=== PATIENT | male | born 1970 | race Caucasian/White ===

== ENCOUNTER → 2016-09-30 | Outpatient (REF) | payer OTHER | LOC: M SFHCLERA 20:03 | PROVIDERS: ATTEND Nurse Practitioner Family | DX: L02.92 Furuncle, unspecified (principal) ==

== ENCOUNTER → 2019-10-07 | Outpatient (CLI) | payer OTHER ==
[~2019-10-07] MED LIST: BUPR150T3 PO; FLON1SPR; FLUO40CA PO; LOSA100T50 PO; MULTCAP PO; OYST1TAB PO; PHEN-239 PO; VITAD1000T PO; VITATAB73 PO
== END ==
LOC: M LABSMTC 10:03
PROVIDERS: ATTEND Anesthesiology
DX: Z01.818 Encounter for other preprocedural examination (principal); Z11.59 Encounter for screening for other viral diseases

== ENCOUNTER 2019-10-10 07:53 | Day surgery (SDC) | payer OTHER ==
[~2019-10-10] VITALS: Ht 193 cm; Wt 161.5 kg
[~2019-10-10 07:53] MED LIST changes: +LIDOCAINE 2% 100MG/5ML SDV (FOR ANES.) As Ordered ONE; +NS 1,000 ML IV ONE; +propofoL 200 MG/20 ML VIAL As Ordered ONE
--- NOTE | 2019-10-10 09:12 | ROOR ---
Patient Name: Nicholas Parsons Procedure Date: 10/10/2019 8:47 AM Date of : 1970 Age: 49 Room: [facility] Gender: Male Note Status: Finalized Procedure: Total Colonoscopy to Cecum + ileoscopy Indications: High risk colon cancer surveillance: Personal history of colonic polyps, Last colonoscopy 10 years ago Providers: Jose Luis Plaza MD Referring MD: Emilia Singh NP Requesting Provider: Medicines: Monitored Anesthesia Care Complications: No immediate complications. Procedure: Pre-Anesthesia Assessment: - The heart rate, respiratory rate, oxygen saturations, blood pressure, adequacy of pulmonary ventilation, and response to care were monitored throughout the procedure. The Colonoscope was introduced through the anus and advanced to the terminal ileum, with identification of the appendiceal orifice and IC valve. The colonoscopy was performed without difficulty. The patient tolerated the procedure well. The quality of the bowel preparation was good. Findings: The perianal and digital rectal examinations were normal. Non-bleeding internal hemorrhoids were found during retroflexion. The hemorrhoids were small and Grade I (internal hemorrhoids that do not prolapse). No other significant abnormalities were identified in a careful examination of the remainder of the colon. The terminal ileum appeared normal. The exam was otherwise without abnormality on direct and retroflexion views. Impression: - Non-bleeding internal hemorrhoids. - The examined portion of the ileum was normal. - The examination was otherwise normal on direct and retroflexion views. - No specimens collected. - The exam was otherwise normal to the cecum. Recommendation: - Patient has a contact number available for emergencies. The signs and symptoms of potential delayed complications were discussed with the patient. Return to normal activities tomorrow. Written discharge instructions were provided to the patient. - High fiber diet. - Discharge patient to home. - Continue present medications. - Repeat colonoscopy in 7 years for screening purposes. - Return to referring physician. - The findings and recommendations were discussed with the patient's family. Jose Luis Plaza MD Jose Luis Plaza MD 10/10/2019 9:11:30 AM Electronically signed by Jose Luis Plaza MD Number of Addenda: 0 Note Initiated On: 10/10/2019 8:47 AM Estimated Blood Loss: Estimated blood loss: none.
[2019-10-10 09:30] VITALS: BP 133/97
== END 2019-10-10 09:42 | disposition home or self-care (01) ==
LOC: M OPP 07:53
PROVIDERS: ATTEND Internal Medicine Gastroenterology
DX: Z12.11 Encounter for screening for malignant neoplasm of colon (principal); Z86.010 Personal history of colon polyps; K64.0 First degree hemorrhoids; Z80.0 Family history of malignant neoplasm of digestive organs

== ENCOUNTER → 2020-08-15 | Outpatient (REF) | payer OTHER ==
[~2020-08-15] MED LIST changes: +BUPR150T12 PO; -BUPR150T3 PO; +D31000TA2 PO; -LIDOCAINE 2% 100MG/5ML SDV (FOR ANES.) As Ordered ONE; -NS 1,000 ML IV ONE; -VITAD1000T PO; -propofoL 200 MG/20 ML VIAL As Ordered ONE
[2020-08-16 23:15] LABS: TESTOSTERONE FREE (DIRECT) 5.6 pg/mL (7.2-24.0)
== END ==
LOC: M LAB REF 11:22
PROVIDERS: ATTEND Nurse Practitioner Adult Health
DX: R53.83 Other fatigue (principal)